=== PATIENT | female | born 1965 | race Hispanic/Latino ===

== ENCOUNTER 2024-05-17 07:17 | Emergency (ER) | payer OTHER ==
[~2024-05-17] VITALS: Ht 165.1 cm; Wt 113.4 kg
--- NOTE | 2024-05-17 08:00 | NUR ---
PT C/O PAIN IN HER ARMS AND FEELING VERY RESTLESS.MD AWARE.
--- NOTE | 2024-05-17 08:08 | ERN ---
General Chief Complaint: Hyperventilation Stated Complaint: HYPERVENTILATION AND ANXIETY Time Seen by MD: 07:36 Source: patient History of Present Illness Initial Comments Patient is a 58-year-old female coming in to be evaluated due to anxiety reactio n. Per patient she was being screened by mental health facility and sent over for further evaluation. Patient has had some family stressors which are making her very anxious. Allergies: Coded Allergies: No Known Drug Allergies (Unverified Allergy, Unknown, 05/17/24) Past Medical History Past Medical History: Anxiety, Depression Medical History Other: OBESITY Past Surgical History: None ROS Dictation CONSTITUTIONAL: No chills, no fever, no weakness, no diaphoresis, no malaise. HEAD/FACE: No signs of trauma. EENT: No eye pain, no blurred vision, no tearing, no double vision, no ear pain, no ear discharge, no nose pain, no nasal congestion, no throat pain, no throat swelling, no mouth pain. RESPIRATORY: No cough, no orthopnea, no SOB, no stridor, no wheezing. CARDIOVASCULAR: No chest pain, no edema, no palpitations, no syncope. GASTROINTESTINAL/ABDOMINAL: No abdominal pain, no constipation, no diarrhea, no nausea, no vomiting. GENITOURINARY: No abnormal discharge, no dysuria, no frequent urination, no hematuria. No complaints of pain in the genitals. MUSCULOSKELETAL: No back pain, no gout, no joint pain, no joint swelling, no muscle pain, no muscle stiffness, no neck pain. INTEGUMENTARY: No change in color, no change in hair/nails, no dryness, no lesion, no lumps, no rash. NEUROLOGICAL/PSYCH: No anxiety, not depressed, no emotional problem, no headache, no numbness, no pre-existing deficit, no history of seizures, no tremors, no weakness. HEMATOLOGIC/LYMPHATIC: Not anemic, no history of blood clots, no apparent bleeding, no bruising, glands not swollen. All Systems Negative, Except as Noted. Physical Exam Physical Exam Dictation VITAL SIGNS: Reviewed. GENERAL APPEARANCE: Alert, oriented x3, no acute distress, obese. HEAD AND FACE: Non-traumatic. EYES: PERRL, pink conjunctivas, eyelid no trauma, anterior chamber clear. EARS: Pinnas intact and no signs of trauma or erythema. Ear canals clear and no discharge. TMs no erythema. NOSE: No discharge, no bleeding. OROPHARYNX: Mouth normal, teeth no caries, tongue pink. Pharynx clear, no erythema. Tonsils no exudates, no abscesses noted. Mucous membrane moist. NECK: Supple, non-tender, no thyromegaly, no masses, no JVD, no bruits. BREAST: Deferred. CHEST: No tenderness, no crepitus, no paradoxical movement, no retractions. LUNGS: Clear, well-ventilated, symmetric, no rales, no wheezing, no rhonchi, no stridor, good breath sounds bilaterally. HEART: Regular rate, regular rhythm, no murmur, no gallops. VASCULAR: No peripheral edema. ABDOMEN: Soft, positive bowel sounds, nondistended, no guarding, nontender, no r ebound, no masses no hepatomegaly, no splenomegaly, no Cheng's sign, no hernias. RECTAL: Deferred. GENITAL: Deferred. NEUROLOGICAL: Normal speech, gross motor function intact, gross sensory function intact. MUSCULOSKELETAL: Neck nontender, full range of motion, back nontender, full range of motion. EXTREMITIES: Nontender, full range of motion. SKIN: Color pink, dry, no turgor, no rash, no lacerations, no abrasions, no contusions. LYMPHATICS: Deferred. Results Laboratory and Microbiology Lab and Micro Result Laboratory Tests Test 05/17/24 08:14 05/17/24 09:15 05/17/24 13:41 05/17/24 16:40 White Blood Count 11.9 K/uL (4.8-10.8) H Red Blood Count 4.42 MIL/uL (4.00-5.50) Hemoglobin 10.0 g/dL (12.0-16.0) L Hematocrit 31.7 % (36-48) L Mean Corpuscular Volume 71.7 fL (79-99) L Mean Corpuscular Hemoglobin 22.6 pg (27.0-33.0) L Mean Corpuscular Hemoglobin Concent 31.5 g/dL (32.0-36.0) L Red Cell Distribution Width 20.4 % (11.0-15.5) H Platelet Count 354 K/uL (130-400) Mean Platelet Volume 9.8 fL (7.5-10.5) Immature Granulocyte % (Auto) 0.6 % (0-1) Neutrophils (%) (Auto) 80.9 % (40.0-77.0) H Lymphocytes (%) (Auto) 10.5 % (21.0-51.0) L Monocytes (%) (Auto) 6.4 % (3.0-13.0) Eosinophils (%) (Auto) 1.3 % (0.0-8.0) Basophils (%) (Auto) 0.3 % (0.0-5.0) Neutrophils # (Auto) 9.6 K/uL (1.8-7.7) H Lymphocytes # (Auto) 1.3 K/uL (1.0-4.8) Monocytes # (Auto) 0.8 K/uL (0.1-1.0) Eosinophils # (Auto) 0.16 K/uL (0.00-0.70) Basophils # (Auto) 0.04 K/uL (0.00-0.20) Absolute Immature Granulocyte (auto 0.07 K/uL (0-1) Nucleated Red Blood Cells 0.0 % (0.0-0.19) Red Blood Cell Morphology See comments Sodium Level 143 mmol/L (136-145) Potassium Level 3.3 mmol/L (3.5-5.1) L Chloride Level 103 mmol/L (101-111) Carbon Dioxide Level 21 mmol/L (21-32) Blood Urea Nitrogen 13 mg/dL (7-18) Creatinine 0.8 mg/dL (0.5-1.0) Glomerular Filtration Rate Calc 84 mL/min (>90) Random Glucose 94 mg/dL (70-105) Total Calcium 8.6 mg/dL (8.5-10.1) Total Creatine Kinase 428 U/L (21-232) *H 441 U/L (21-232) *H 457 U/L (21-232) *H Salicylates Level < 2.8 mg/dL (2.8-20.0) L Acetaminophen Level < 1 mcg/mL (10-30) L Serum Alcohol < 3 mg/dL (0-10) Urine Color LIGHT-YELLOW (YELLOW) Urine Appearance CLEAR (CLEAR) Urine pH 6.5 (5.0-8.0) Urine Specific [place] 1.012 (1.001-1.031) Urine Protein NEGATIVE mg/dL (NEGATIVE) Urine Glucose (UA) NEGATIVE mg/dL (NEGATIVE) Urine Ketones 60 mg/dL (NEGATIVE) H Urine Occult Blood NEGATIVE (NEGATIVE) Urine Nitrate NEGATIVE (NEGATIVE) Urine Bilirubin NEGATIVE mg/dL (NEGATIVE) Urine Urobilinogen 0.2 mg/dL (0.2-1.0) Urine Leukocyte Esterase NEGATIVE So/uL Urine RBC 0-1 /HPF (0-1) Urine WBC 2-5 /HPF (0-1) H Urine Squamous Epithelial Cells FEW /HPF (0-2) Urine Bacteria RARE /HPF (None Seen) Urine Opiates Screen NEGATIVE (NEGATIVE) Urine Barbiturates Screen NEGATIVE (NEGATIVE) Urine Phencyclidine Screen NEGATIVE (NEGATIVE) Urine Amphetamines Screen NEGATIVE (NEGATIVE) Urine Benzodiazepines Screen POSITIVE (NEGATIVE) H Urine Cocaine Screen POSITIVE (NEGATIVE) H Urine Marijuana (THC) Screen NEGATIVE (NEGATIVE) Labs Reviewed?: Yes EKG/XRAY/US/CT/MRI EKG Comment 05/17/2024 time 7:36 a.m. Ventricular rate 80 Sinus rhythm [place] [address] wave elevation or depression MDM THIS IS A 58-YEAR-OLD FEMALE COMING IN TO BE EVALUATED FOR PSYCHIATRIC ILLNESS. PER PATIENT SHE HAS BEEN VERY ANXIOUS HE WAS SENT OVER BY [facility] FOR FURTHER EVALUATION. PATIENT WAS ACCEPTED AND [facility] AND WILL BE SENT BACK. PATIENT HAS BEEN CLEARED MEDICALLY. ED Course Orders Procedure Category Date Status Time Cbc With Differential LAB 05/17/24 Complete 07:36 Alcohol, Blood LAB 05/17/24 Complete 07:36 Salicylate LAB 05/17/24 Complete 07:36 Acetaminophen LAB 05/17/24 Complete 07:36 Urinalysis Profile LAB 05/17/24 Complete 07:36 12 Lead Ekg Tracing- EKG 05/17/24 Resulted Technical 07:36 0.9%Nacl 1000ml (Ns PHA 05/17/24 Complete 1000ml) 08:30 Creatine Kinase, Total LAB 05/17/24 Complete 07:36 Basic Metabolic Panel LAB 05/17/24 Complete 07:36 Drug Screen Urine LAB 05/17/24 Complete 07:36 Hydroxyzine 50mg Vial PHA 05/17/24 Complete (Atarax 50mg Inj) 08:22 Potassium Bicarb/Cit PHA 05/17/24 Complete Ac 25meq (K-Lyte Ta 09:30 0.9%Nacl 1000ml (Ns PHA 05/17/24 Complete 1000ml) 10:30 Potassium Chloride PHA 05/17/24 Complete 10meq/100ml ([place] 11:00 Creatine Kinase, Total LAB 05/17/24 Complete 13:17 0.9%Nacl 1000ml (Ns PHA 05/17/24 Complete 1000ml) 15:00 Creatine Kinase, Total LAB 05/17/24 Complete 16:11 Vital Signs Date Time Temp Pulse Resp B/P (MAP) Pulse Ox O2 Delivery O2 Flow Rate FiO2 05/17/24 17:40 98.4 90 14 153/71 96 Room Air* 0 21 05/17/24 14:00 97 18 138/81 96 Room Air* 0 21 05/17/24 12:00 97.5 99 14 135/78 96 Room Air* 0 21 05/17/24 10:00 97.3 88 18 131/63 100 Room Air* 0 05/17/24 07:50 97.3 96 20 138/67 100 Room Air* 0 05/17/24 07:20 98.4 87 22 124/68 98 Room Air 0 DX & DISP Disposition: Transfer Departure Impression: Primary Impression: Psychiatric illness Condition: Stable Referrals: NONE (PCP) RAQUEL ASCENCIO MD May 17, 2024 08:08
[2024-05-17 08:22] LABS: BASOPHILS # (AUTO) 0.04 K/uL (0.00-0.20); BASOPHILS % (AUTO) 0.3 % (0.0-5.0); EOSINOPHILS # (AUTO) 0.16 K/uL (0.00-0.70); EOSINOPHILS % (AUTO) 1.3 % (0.0-8.0); HEMATOCRIT 31.7 % (36-48); IMMATURE GRANULOCYTE ABSOLUTE 0.07 K/uL (0-1); LYMPHOCYTES # (AUTO) 1.3 K/uL (1.0-4.8); LYMPHOCYTES % (AUTO) 10.5 % (21.0-51.0); MEAN CORPUSCULAR HEMOGLOBIN 22.6 pg (27.0-33.0); MEAN CORPUSCULAR HGB CONC 31.5 g/dL (32.0-36.0); MEAN CORPUSCULAR VOLUME 71.7 fL (79-99); MONOCYTES # (AUTO) 0.8 K/uL (0.1-1.0); MONOCYTES % (AUTO) 6.4 % (3.0-13.0); NEUTROPHILS # (AUTO) 9.6 K/uL (1.8-7.7); NEUTROPHILS % (AUTO) 80.9 % (40.0-77.0); PLATELET COUNT (AUTO) 354 K/uL (130-400); RED BLOOD CELL COUNT(AUTO) 4.42 MIL/uL (4.00-5.50); RED CELL DISTRIBUTION WIDTH 20.4 % (11.0-15.5); WHITE BLOOD COUNT (AUTO) 11.9 K/uL (4.8-10.8)
[2024-05-17] MEDS: hydrOXYzine 50MG VIAL 50 MG/ML VIAL IM STA (08:28)
[2024-05-17] MEDS: 0.9%NACL 1000ML 1,000 ML IV ONE ×2 (08:29→10:32)
[2024-05-17 08:34] LABS: CARBON DIOXIDE 21 mmol/L (21-32); CHLORIDE 103 mmol/L (101-111); CREATININE 0.8 mg/dL (0.5-1.0); GLOMERULAR FILTR. RATE CALC 84 mL/min (>90); GLUCOSE,RANDOM 94 mg/dL (70-105); POTASSIUM 3.3 mmol/L (3.5-5.1); SODIUM SERUM 143 mmol/L (136-145); UREA NITROGEN, BLOOD 13 mg/dL (7-18)
[2024-05-17 08:49] LABS: SALICYLATE < 2.8 mg/dL (2.8-20.0)
[2024-05-17 08:50] LABS: ACETAMINOPHEN < 1 mcg/mL (10-30); ALCOHOL, BLOOD < 3 mg/dL (0-10)
[2024-05-17 08:55] LABS: CREATINE KINASE, TOTAL 428 U/L (21-232)
[2024-05-17 09:31] LABS: AMPHET/METH SCREEN,URINE NEGATIVE (NEGATIVE); BARBITURATE SCREEN, URINE NEGATIVE (NEGATIVE); BENZODIAZEPINES SCREEN,URINE POSITIVE (NEGATIVE); CANNABINOID SCREEN,URINE NEGATIVE (NEGATIVE); COCAINE SCREEN,URINE POSITIVE (NEGATIVE); OPIATE SCREEN,URINE NEGATIVE (NEGATIVE); PHENCYCLIDINE SCREEN,URINE NEGATIVE (NEGATIVE)
[2024-05-17 09:33] LABS: APPEARANCE,URINE CLEAR (CLEAR); BILIRUBIN,URINE NEGATIVE (NEGATIVE); COLOR,URINE LIGHT-YELLOW (YELLOW); GLUCOSE, URINE (UA) NEGATIVE (NEGATIVE); KETONES,URINE 60 mg/dL (NEGATIVE); LEUKOCYTE ESTERASE ,URINE NEGATIVE Leu/uL (NEGATIVE); NITRATE,URINE NEGATIVE (NEGATIVE); OCCULT BLOOD,URINE NEGATIVE (NEGATIVE); PH,URINE 6.5 (5.0-8.0); PROTEIN,URINE NEGATIVE (NEGATIVE); UROBILINOGEN,URINE 0.2 mg/dL (0.2-1.0)
[2024-05-17 09:42] LABS: ADD UA MICROSCOPIC YES
[2024-05-17 09:44] LABS: BACTERIA,URINE RARE /HPF (None Seen); MUCUS,URINE RARE LPF (None Seen); RBC,URINE 0-1 /HPF (0-1); SQUAMOUS EPITHELIAL CELL,UR FEW /HPF (0-2)
[2024-05-17] MEDS: PoTASSium BIcarbonate/CIT AC 25 MEQ TABLET.EFF PO ONE (10:32)
[2024-05-17] MEDS: PoTASSium chloRIDE 10MEQ/100ML 100 ML IV ONE (10:44)
--- NOTE | 2024-05-17 15:25 | EKG ---
[facility] Test Date: 2024-05-17 Test Time: 07:36:39 Pat Name: MYAH NELSON Department: ED Room: Gender: F [employer]bling [employer] Operator: [facility] : 1965 Requested By: RAQUEL ASCENCIO Order Number: [id number] Reading MD: Aramis Dominique Measurements Intervals [place] Rate: 80 P: 43 CT: 193 QRS: 40 QRSD: 98 T: 32 QT: 428 QTc: 494 Interpretive Statements Sinus rhythm Nonspecific repol abnormality, diffuse leads No previous ECG available for comparison Electronically Signed On 05-22-2024 07:15:25 CDT by Aramis Dominique Please click the below link to view image of tracing.
[2024-05-17] MEDS: 0.9%NACL 1000ML 1,000 ML IV SCH (17:12)
[2024-05-17 17:40] VITALS: BP 153/71; PULSE 90; RESP 14; TEMP 98.4; O2SAT 96
--- NOTE | 2024-05-17 17:45 | NUR ---
REPORT TO [facility] TALKED TO LIEN REGARDING PT'S RETURN TO [facility].INFORMED HER ABOUT THE REQUESTED RESULTS.SHE CONFIRMED IT WITH HER DON THAT PT CAN RETURN TO THEIR FACILITY.SHE FORWARDED ME TO NURSE DARLINE,WHO TOOK MY REPORT.
--- NOTE | 2024-05-17 17:59 | NUR ---
FAMILY UPDATE INFORMED PT'S DAUGHTER,DOMINIQUE NELSON ([phone]) THAT HER MOM IS CURRENTLY IN ER[facility]05 FOR MEDICAL CLEARANCE. Addendum: 05/17/24 at 1843 by SAMANTHA THE PHONE CALL WAS MADE AT 8 AM.
--- NOTE | 2024-05-17 18:43 | NUR ---
FAMILY UPDATE DAUGHTER DOMINIQUE INFORMED ABOUT PT'S DISCHARGE FROM ER AND RETURN TO [facility].
== END 2024-05-17 18:45 ==
LOC: EDH 07:17
DX: F99 Mental disorder, not otherwise specified (principal); F41.1 Generalized anxiety disorder; E66.9 Obesity, unspecified; F32.A Depression, unspecified; Z68.41 Body mass index [BMI] 40.0-44.9, adult
CPT/HCPCS: 99285; 96360; 96361; 82550 ×3; 80048; 80305; 85025; 36415; 93005; 96372; 81001; G0481; J3410; J7030 ×3; J3480